=== PATIENT | male | born 1995 | race Caucasian/White ===

== ENCOUNTER 2017-02-06 15:40 | Emergency (ER) | payer MEDICAID, OTHER ==
[~2017-02-06] VITALS: Wt 127.0 kg
[2017-02-06] MEDS ORDERED: BACI28.34 TOP (15:59)
[2017-02-06] MEDS ORDERED: ACETAMINOPHEN 325 MG TAB PO ONE (17:00)
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
== END 2017-02-06 17:09 | disposition home or self-care (01) ==
LOC: FTE 15:40
DX: S01.01XA Laceration without foreign body of scalp, initial encounter (principal); Y08.89XA Assault by other specified means, initial encounter
CPT/HCPCS: 12001; Z7502; Z7610

== ENCOUNTER 2017-02-13 08:45 | Emergency (ER) | payer MEDICAID ==
[~2017-02-13] VITALS: Ht 175.3 cm; Wt 130.0 kg
[~2017-02-13 08:45] MED LIST: BACI28.34 TOP
[2017-02-13 08:46] VITALS: Ht 175.3 cm; Wt 130.0 kg
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
== END 2017-02-13 09:32 | disposition home or self-care (01) ==
LOC: FTE 08:45
DX: Z48.02 Encounter for removal of sutures (principal)
CPT/HCPCS: 99281